=== PATIENT | female | born 1955 | race Caucasian/White ===

== ENCOUNTER 2021-01-07 08:55 | Outpatient (CLI) | payer MEDICARE, MEDICAID, SELFPAY ==
[2021-01-07 09:07] VITALS: BMI 28.3
--- NOTE | 2021-01-07 09:12 | ECG_ITS ---
[facility] Test Date: 2021-01-07 Pat Name: Lizzy Watkins Department: Room: Gender: Female [employer] Professor: : 1955 Requested By: Cuco Gayle Order Number: [id number] Sonu MD: Hi Magaña M.D. Interpretive Statements NAME OF STUDY: EXERCISE SESTAMIBI STRESS TEST INDICATION: [Chest Pain, ] Procedure: At the baseline, the blood pressure was 156/88 mmHg, with a heart rate of 72 bpm. The electrocardiogram showed normal sinus rhythm, normal with normal ST and T waves. Patient exercised for a total of 3 minutes and 8 seconds. Patient achieved total of 4.6 METS. Heart rate at peak exercise was 171bpm which is 111% of maximum predicted heart rate. Maximum blood pressure in exercise phase is 235/111. The EKG at the peak infusion revealed sinus rhythm with no significant ST-T wave changes. Blood pressure at the end of the recovery phase was 156/106mmHg with a heart rate of 100 bpm. Conclusion: 1. Normal EKG response to exercise. 2. No exercise induced chest pain or cardiac arrhythmia. 3. Hypertensive and tachycardic response. 4. Sestamibi/sestamibi perfusion scan pending; see separate report. Electronically Signed On 01-18-2021 18:04:38 CDT by Hi Magaña M.D. [email or web address]
--- NOTE | 2021-01-07 09:13 | NMCV_ITS ---
NM addy perf SPECT r/s* [id number] Lizzy Watkins Age: 65 Gender: F : 1955 Exam Date: 01/07/2021 10:20 Ordering Phys: Cuco Gayle Technologist: HAO Lopez Exam Location: [facility] Indications: Chest pain STRESS TEST [facility] IMAGE PROTOCOL Rest/Stress 1 Exercise Day Radiopharmaceutical Dose (mCi) Administration Site Administered by Rest: Tc-99m 10.6 IV HAO Hardwick Sestamibi Stress:Tc-99m 32.4 IV HAO Lopez Sestamicici Rest: 07-Jan-2021 60 Discovery 630 Stress: 07-Jan-2021 15 Discovery 630 Radiopharmaceutical was injected at 100% maximum heart rate. Images obtained in supine and prone position. SPECT RESULTS Technical Quality: Excellent Raw Data Analysis: Breast attenuation Image Corrections: No attenuation or motion correction applied Summed Stress Score: 0 Summed Rest Score: 0 Summed Difference Score: 0 PERFUSION FINDINGS SPECT images demonstrate homogeneous tracer distribution throughout the myocardium. FUNCTIONAL RESULTS (calculated via Gated SPECT) Stress Image LV EF (%): 70 Stress EDV (mL):47 TID: 0.71 Stress ESV (mL):14 FUNCTIONAL FINDINGS: There is normal left ventricular systolic function. IMPRESSIONS 1. Normal myocardial perfusion imaging with no evidence of ischemia 2. LV systolic function is normal Hi Magaña MD (Electronically Signed) Final Date: 07 January 2021 19:07 S
[2021-01-07 11:09] VITALS: BP 156/106; PULSE 100
== END 2021-01-07 08:56 | disposition home or self-care (01) ==
PROVIDERS: PCP Family Medicine; Visit Provider Family Medicine
DX: R07.9 Chest pain, unspecified (principal)
CPT/HCPCS: 78452; 93017; A9500